=== PATIENT | female | born 1995 | race Caucasian/White ===

== ENCOUNTER 2023-03-19 18:51 | Emergency (ER) | payer BC ==
[~2023-03-19] VITALS: Ht 162.6 cm; Wt 71.7 kg
[2023-03-19 18:59] VITALS: BP 158/95
== END 2023-03-19 19:51 | disposition home or self-care (01) ==
LOC: ER 18:51
DX: R07.89 Other chest pain (principal); R06.02 Shortness of breath; Z88.5 Allergy status to narcotic agent
CPT/HCPCS: 93005; 93010; 99284-25